=== PATIENT | female | born 1985 | race Two or more races ===

== ENCOUNTER 2019-08-02 12:50 | Inpatient (IN) | payer MEDICAID, OTHER ==
[~2019-08-02] VITALS: Ht 165.1 cm; Wt 107.2 kg
[2019-08-02] MEDS ORDERED: KETOROLAC TROMETH 30 MG/ML 1ML VIAL IV ONE (13:00)
[2019-08-02] MEDS ORDERED: ONDANSETRON HCL 4 MG/2 ML VIAL IV ONE ×2 (13:00→16:45)
[2019-08-02 13:32] LABS: Basophils # (auto) 0.2 10 ^3/uL (0-0.2); Basophils % (auto) 1.2 % (0.0-2.0); Eosinophils # (auto) 0.1 10 ^3/uL (0-0.8); Eosinophils % (auto) 0.5 % (0.0-7.0); Hematocrit 46.1 % (36.0-46.0); Hemoglobin 15.3 g/dL (12.2-16.2); Lymphocytes % (auto) 20.4 % (10.0-50.0); Mean Corpuscular Hemoglobin 28.8 pg (28.0-32.0); Mean Corpuscular Hgb Conc. 33.2 g/dL (32.0-36.0); Mean Corpuscular Volume 86.6 fL (80.0-100.0); Monocytes % (auto) 6.8 % (0.0-12.0); Neutrophils # (auto) 10.4 10 ^3/uL (1.6-8.6); Neutrophils % (auto) 71.1 % (37.0-80.0); Nucleated Red Blood Cells % 0.2 %; Platelet Count (auto) 177 10^3/uL (140-450); Red Blood Cells 5.33 10^6/uL (4.0-5.20); Red Cell Distribution Width 13.3 % (11.8-14.3); White Blood Cell 14.7 10^3/uL (4.4-10.8)
[2019-08-02 13:57] LABS: Calcium 8.8 mg/dL (8.5-10.1); Potassium 3.4 mmol/L (3.5-5.1)
[2019-08-02 14:00] LABS: Urine Bacteria NONE SEEN /hpf (None Seen); Urine Blood 3+ /uL (Negative); Urine Mucus FEW (None Seen); Urine Specific Gravity 1.024 (1.001-1.035); Urine WBC 24 /hpf (0 - 5)
[2019-08-02] MEDS ORDERED: MORPHINE SULF INJ 2 MG/ML SYRINGE 1ML IV ONE (14:00)
[2019-08-02 14:02] LABS: BUN/Creatinine Ratio 13.3; Bilirubin, Total 0.8 mg/dL (0.2-1.0); Total Protein 7.6 g/dL (6.4-8.2)
[2019-08-02] MEDS ORDERED: SODIUM CHLORIDE 0.9% 1,000 ML IV ONE (15:53)
[2019-08-02] MEDS ORDERED: cefTRIAXone 1GM/50ML D5W 50 ML IV ONE (16:00)
[2019-08-02] MEDS ORDERED: TAMSULOSIN HYDROCHLORIDE 0.4 MG CAP PO ONE (16:00)
[2019-08-02] MEDS ORDERED: HYDROmorphone HCL 2 MG/ML VL IV ONE (16:45)
[2019-08-02] MEDS ORDERED: ACETAMINOPHEN 500 MG TAB PO PRN (17:45)
[2019-08-02] MEDS ORDERED: ONDANSETRON HCL 4 MG/2 ML VIAL IV PRN (17:45)
[2019-08-02] MEDS ORDERED: MORPHINE SULF INJ 2 MG/ML SYRINGE 1ML IV PRN ×2 (17:45)
[2019-08-02] MEDS ORDERED: NITROGLYCERIN 0.4 MG SL TAB SL PRN (17:45)
[2019-08-02] MEDS: SODIUM CHLORIDE 0.9% 1,000 ML IV SCH (17:46)
[2019-08-02] MEDS: HYDROcodone-ACET 5/325MG TAB PO PRN ×2 (17:52→23:36)
[2019-08-02] MEDS ORDERED: POTASSIUM EFFERVESENT TAB 25 MEQ PO ONE (18:00)
[2019-08-02 20:10] VITALS: BP 135/80
--- NOTE | 2019-08-02 20:10 | NUR ---
Opening note Assumed care of patient from ER. Patient alert and orientated x4. Pain at a 5/10. Patient states comfort level at a 5. Vital signs Temp 98.4, HR 92, resp 20, BP 124/76, Pain 5/10. No SOB or distress noted. Running Normal Saline at 125 mls an hr. POC reviewed. Orientated patient to room and hospital policies. Patient verbalized understanding. Bed locked in lowest position. Side rails up x2. Call light within reach. Will continue to monitor.
[2019-08-02 22:00] VITALS: BP 124/76
--- NOTE | 2019-08-02 23:30 | NUR ---
Patient rounding Patient awake watching Tv. States pain 4/10. Patient requesting [place] at this time. Pain in lower left abdomen beginning to rise. Will medicate per md orders. Will continue to monitor Call light within reach.
[2019-08-03] VITALS (7 sets, daily range): BP systolic 96–126; BP diastolic 46–85
[2019-08-03] MEDS: SODIUM CHLORIDE 0.9% 1,000 ML IV SCH ×4 (01:38→20:55)
--- NOTE | 2019-08-03 04:32 | NUR ---
Patient rounding Patient asleep in bed. No distress noted. Chest evenly rising. Call light within reach. Will continue to monitor.
--- NOTE | 2019-08-03 05:52 | NUR ---
Pain Patient states pain 5/10. Lower left abdomen. Will medicate per md orders. Call light within reach. Will continue to monitor.
[2019-08-03] MEDS: HYDROcodone-ACET 5/325MG TAB PO PRN ×2 (05:53→23:38)
[2019-08-03 06:24] LABS: Basophils # (auto) 0 10 ^3/uL (0-0.2); Basophils % (auto) 0.2 % (0.0-2.0); Eosinophils # (auto) 0.1 10 ^3/uL (0-0.8); Eosinophils % (auto) 0.4 % (0.0-7.0); Hematocrit 40.1 % (36.0-46.0); Hemoglobin 13.3 g/dL (12.2-16.2); Lymphocytes # (auto) 2.8 10 ^3/uL (0.4-5.4); Lymphocytes % (auto) 18.5 % (10.0-50.0); Mean Corpuscular Hgb Conc. 33.1 g/dL (32.0-36.0); Mean Corpuscular Volume 87.5 fL (80.0-100.0); Monocytes # (auto) 1.2 10 ^3/uL (0-1.3); Monocytes % (auto) 7.8 % (0.0-12.0); Neutrophils # (auto) 11.1 10 ^3/uL (1.6-8.6); Neutrophils % (auto) 73.1 % (37.0-80.0); Nucleated Red Blood Cells % 0.1 %; Platelet Count (auto) 136 10^3/uL (140-450); Red Blood Cells 4.59 10^6/uL (4.0-5.20); Red Cell Distribution Width 13.2 % (11.8-14.3); White Blood Cell 15.2 10^3/uL (4.4-10.8)
[2019-08-03 06:45] LABS: BUN/Creatinine Ratio 16.1; Calcium 7.7 mg/dL (8.5-10.1); Potassium 3.6 mmol/L (3.5-5.1)
--- NOTE | 2019-08-03 06:54 | NUR ---
Closing note Endorsed care to day shift RN Abhinav.
[2019-08-03] MEDS: FAMOTIDINE 20 MG TAB PO SCH (09:10)
[2019-08-03] MEDS ORDERED: cefTRIAXone 1GM/50ML D5W 50 ML IV ONE (13:45)
--- NOTE | 2019-08-03 19:05 | NUR ---
Opening note Assumed care of patient. Patient alert and orientated x4. No SOB or distress noted at this time. Bed locked in lowest position. Side rails up x2. Patient complaining of mild headache. 04/26. No pain to abdomen. POC reviewed. No questions at this time. Call light within reach. Will continue to monitor.
--- NOTE | 2019-08-03 19:35 | NUR ---
LIZZIE Zaragoza at bedside. Will follow through with new orders. Will continue to monitor.
--- NOTE | 2019-08-03 19:43 | NUR ---
Pain Patient states she has a headache. 04/26. Requesting Tylenol at this time. Medicated per md orders. Call light within reach. Will continue to monitor.
[2019-08-03] MEDS ORDERED: TAMSULOSIN HYDROCHLORIDE 0.4 MG CAP PO SCH (19:55)
[2019-08-03] MEDS ORDERED: KETOROLAC TROMETH 30 MG/ML 1ML VIAL IV PRN (20:00)
[2019-08-03] MEDS ORDERED: MANNITOL FTV 25% 12.5 GM/50 ML 50 ML IV ONE (20:00)
--- NOTE | 2019-08-03 23:33 | NUR ---
Pain Patient states pain 07/27. Headache came back. With a little left lower quadrant pain. Will medicate per md orders. Call light within reach. Will continue to monitor.
[2019-08-04] MEDS: SODIUM CHLORIDE 0.9% 1,000 ML IV SCH ×2 (03:35→09:36)
[2019-08-04 05:02] VITALS: BP 111/65
[2019-08-04 06:38] LABS: Basophils # (auto) 0 10 ^3/uL (0-0.2); Basophils % (auto) 0.5 % (0.0-2.0); Eosinophils # (auto) 0.1 10 ^3/uL (0-0.8); Eosinophils % (auto) 0.8 % (0.0-7.0); Hematocrit 38.5 % (36.0-46.0); Lymphocytes # (auto) 2.6 10 ^3/uL (0.4-5.4); Lymphocytes % (auto) 27.9 % (10.0-50.0); Mean Corpuscular Hemoglobin 29.5 pg (28.0-32.0); Mean Corpuscular Hgb Conc. 33.8 g/dL (32.0-36.0); Mean Corpuscular Volume 87.3 fL (80.0-100.0); Monocytes # (auto) 0.8 10 ^3/uL (0-1.3); Neutrophils # (auto) 5.7 10 ^3/uL (1.6-8.6); Neutrophils % (auto) 61.8 % (37.0-80.0); Nucleated Red Blood Cells % 0.1 %; Platelet Count (auto) 128 10^3/uL (140-450); Red Blood Cells 4.41 10^6/uL (4.0-5.20); Red Cell Distribution Width 13.3 % (11.8-14.3); White Blood Cell 9.3 10^3/uL (4.4-10.8)
[2019-08-04] MEDS: HYDROcodone-ACET 5/325MG TAB PO PRN (06:50)
--- NOTE | 2019-08-04 06:50 | NUR ---
Pain Patient states pain 6/10. Pain in head. Will medicate with Waddy. Endorsed reassessment to day shift nurse.
--- NOTE | 2019-08-04 06:57 | NUR ---
Closing note Endorsed care to day shift RN Abhinav.
[2019-08-04 07:02] LABS: Calcium 8.1 mg/dL (8.5-10.1); Potassium 3.5 mmol/L (3.5-5.1)
[2019-08-04 07:04] LABS: BUN/Creatinine Ratio 11.9
[2019-08-04 08:00] VITALS: BP 105/53
[2019-08-04 09:00] VITALS: BP 105/53
[2019-08-04] MEDS ORDERED: cefTRIAXone 1GM/50ML D5W 50 ML IV SCH (09:00)
[2019-08-04] MEDS: FAMOTIDINE 20 MG TAB PO SCH (09:35)
--- NOTE | 2019-08-04 12:17 | NUR ---
PATIENT DISCHARGED HOME WITH FAMILY. ALL IV ACCESS DISCONTINUED. PATIENT NON-TELEMETRY. ALL DISCHARGE PAPERWORK SIGNED. ALL DISCHARGE INSTRUCTIONS GIVEN
== END 2019-08-04 12:17 | disposition home or self-care (01) | DRG 463 ==
LOC: EDBD 12:50 → ER 12:50 → OVERFLOW 12:51 → EAST 20:16
PROVIDERS: ADMIT Nurse Practitioner Acute Care; ATTEND Internal Medicine
DX: N13.6 Pyonephrosis (principal); N17.0 Acute kidney failure with tubular necrosis; K76.0 Fatty (change of) liver, not elsewhere classified; R16.2 Hepatomegaly with splenomegaly, not elsewhere classified; E66.9 Obesity, unspecified; E87.6 Hypokalemia; J98.11 Atelectasis; K42.9 Umbilical hernia without obstruction or gangrene; Z82.49 Family history of ischemic heart disease and other diseases of the circulatory system; N18.9 Chronic kidney disease, unspecified; Z68.38 Body mass index [BMI] 38.0-38.9, adult
CPT/HCPCS: 36415; 74176; 80048; 80053; 81001; 81025; 83690; 85025; 87086; G0378; J0696; J1885; J2405

== ENCOUNTER 2019-08-06 06:18 | Emergency (ER) | payer MEDICAID ==
[~2019-08-06] VITALS: Ht 160 cm; Wt 99.8 kg
[2019-08-06 07:57] VITALS: BP 146/92
[2019-08-06] MEDS ORDERED: TAMSULOSIN HYDROCHLORIDE 0.4 MG CAP PO ONE (08:15)
[2019-08-06] MEDS ORDERED: KETOROLAC TROMETH 60MG/2ML VIAL IM ONE (08:15)
== END 2019-08-06 08:54 | disposition home or self-care (01) ==
LOC: ER 06:18
DX: N20.0 Calculus of kidney (principal)
CPT/HCPCS: 96372; 99283; J1885